=== PATIENT | female | born 1950 | race Caucasian/White ===

== ENCOUNTER 2016-08-27 19:10 | Emergency (ER) | payer MEDICARE, MEDICAID ==
[~2016-08-27] VITALS: Ht 157.5 cm; Wt 79.5 kg
--- NOTE | 2016-08-27 19:15 | ED.REPORT ---
HPI-Psychiatric Illness Date of Service Aug 27, 2016 ED Provider: Patel Panchal MD Pt is a 65 y/o female w/ a hx of unspecified psychiatric illnesses presenting to the ED via EMS from [facility] due to change in behavior. The patient reports chest pain and was apparently screaming out for help and "the temporary receptionist" called police to come check her. She relates that she does not need to be here. She denies stating any suicidal ideation to her caretakers and she is not suicidal now. Her chest pain has been occurring intermittently for 1 month and is described as a sharp pain which lasts minutes at a time. She does not know of anything that provokes her pain. She c/o associated ongoing neck pain. Pt denies SOB, diaphoresis, nausea. She has no history of cardiovascular disease. She states she has been at [facility] for 8 months due to a shoulder fracture. She was started on Seroquel a couple months ago. EMS reports the patient lives at [facility] and has been becoming more disruptive, manipulative, having outbursts, requiring frequent need changes, and agitated. The Crisis line was apparently called multiple times and this is not specified whether this was her or the staff. History difficult to obtain because she provides a contradictory history to the information given by staff. Nursing Notes Stated Complaint: MENTAL HEALTH EVAL Nursing Notes Reviewed: Yes ([employer] not reconciled) Allergies: Coded Allergies: amitriptyline (Verified Allergy, Mild, 08/27/16) aspirin (Verified Allergy, Mild, 08/27/16) bupropion (Verified Allergy, Mild, 08/27/16) ibuprofen (Verified Allergy, Mild, 08/27/16) paroxetine (Verified Allergy, Mild, 08/27/16) tetracycline (Verified Allergy, Mild, 08/27/16) Uncoded Allergies: ERYTHROMYCIN (Allergy, Mild, 08/27/16) PENICILLIN (Allergy, Mild, 08/27/16) General Time Seen by MD: 19:14 Chief Complaint Bizarre behavior Hx Obtained From: Patient, Cashier Host/Hostess, EMS Arrived By: Ambulance Onset Occurred: Onset unknown Symptom Duration: Since onset Progression Since Onset: Constant Location: : Chest Quality: Painful Radiation: Does not radiate Severity: Current: Moderate Severity: Maximum: Moderate Risk-Psychiatric Illness Suicide Risk Stratification RF Statements: Risk factors N/A Past Medical History Past Medical History Unspecified psychiatric illnesses "benign chest tumor" "Hand tumor" Past Surgical History x2 Arm Smoking History Never Smoker Social History Alcohol Use: Denies alcohol use Ambulatory Status Independent Review of Systems Respiratory: Denies: Shortness of breath Cardiovascular: Reports: Chest pain GI: Denies: Nausea Skin: Denies Diaphoresis Psychiatric: Reports: Change mental status, Unable to control self Complete sys rev & neg: except as marked. Physical Exam Initial Vital Signs Vital Signs (First) Date Time Temp Pulse Resp B/P Pulse Ox O2 Delivery O2 Flow Rate FiO2 08/27/16 19:16 97 15 128/89 97 Room Air Initial VS: Reviewed, Unavailable (none on chart, ordered) Head / Eyes: Atraumatic, Normocephalic, PERRL ENT: Mucous membranes moist, Conjunctiva normal, No scleral icterus Neck: Supple, Full range of motion Respiratory: Breath sounds normal, Clear to auscultation, No respiratory distress Cardiovascular: Regular rate & rhythm, Heart sounds normal, Intact distal pulses Abdomen / GI: Soft, Non-tender, No guarding, No rebound, No distention Extremities: Vascular intact, Neuro intact, No swelling, No tenderness Skin: Warm, Dry, No cyanosis General/Constitutional: Awake, Alert, No acute distress, Cooperative, Not toxic appearing Neurologic: Oriented X3, Speech NL, No motor deficits, No sensory deficits Psychiatric: Not suicidal, Not homicidal, No hallucinations Not agitated She provides a contradictory history to everything on the paper which indicates history from [facility] staff Difficult to determine insight and judgement due to conflicting stories She is calm and cooperative and disputes in a seemingly rational manner all apsects she was sent here for Interpretation & Diagnostics Lab Results Interpretation Result Diagram: 08/27/16194408/27/161944 Test 08/27/16 19:45 White Blood Count 12.4th/mm3 (3.8-10.1) Red Blood Count 3.85mil/mm3 (3.90-5.20) Hemoglobin 11.1g/dL (12.0-15.6) Hematocrit 34.9% (35.0-46.0) Mean Corpuscular Volume 90.6fL (81-100) Mean Corpuscular Hemoglobin 28.8pg (27.0-35.0) Mean Corpuscular Hemoglobin Concent 31.8% (32.0-37.0) Red Cell Distribution Width 13.5% (12.3-15.4) Platelet Count 312bil/L (150-400) Neutrophils (%) (Auto) 56.9% (40-74) Lymphocytes (%) (Auto) 28.3% (14-46) Monocytes (%) (Auto) 9.2% (4-12) Eosinophils (%) (Auto) 4.9% (0-5) Basophils (%) (Auto) 0.4% (0-3) Sodium Level 136mEq/L (134-144) Potassium Level 4.6mEq/L (3.5-5.2) Chloride Level 95mEq/L (97-108) Carbon Dioxide Level 28mmol/L (18-29) Blood Urea Nitrogen 12mg/dL (8-27) Creatinine 0.52mg/dL (0.57-1.00) Estimat Glomerular Filtration Rate 169mL/min (>59) Glucose Level 86mg/dL (60-99) Calcium Level 9.7mg/dL (8.5-10.1) Total Bilirubin 0.2mg/dL (0.0-1.2) Aspartate Amino Transf (AST/SGOT) 17U/L (0-50) Alanine Aminotransferase (ALT/SGPT) 13U/L (0-32) Alkaline Phosphatase 103U/L (25-165) Troponin T < 0.010ug/L (0.0-0.011) Total Protein 7.3g/dL (6.4-8.4) Albumin 3.7g/dL (3.4-5.0) Thyroid Stimulating Hormone (TSH) 5.800uIU/mL (0.450-4.500) Hold Lawson Top Tube Received (Received) Lab Results Interpretation: CBC nonspecific leukocytosis, patient has no clinical findings of infection CMP normal breathylizer negative U tox negative TSH marginally elevated, but not requiring therapeutic or medical intervention ECG Interpretation ECG Interpretation: Sinus rhythm rate 96 Inverted T waves lateral leads of uncertain significance Time: 19:35 Interpreted by: ED physician X-Ray Chest Interpretation Chest Xray Interpretation: IMPRESSION: Interval increased size of large retrocardiac hiatal hernia. No acute pulmonary disease. Dictated by: Chemo Gallagher M.D. on 08/27/2016 at 19:59 Approved by: Chemo Gallagher M.D. on 08/27/2016 at 20:00 View: Portable, 1 view Interpretation / Wet Read by: Interpret - Radiologist Re-Eval/Medical Decision Med Decision/Clinical Course This is a 65-year-old female sent in by [facility] for mental health evaluation. When I go to interview the patient she is cooperative, and indicates she does not think she needs to be here-she indicates that she was simply asking for help and assistance and was coming to help her so she yelled out, at which point she was told she is being sent for mental health evaluation. there is her version of the story, although it sounds that she has had a long history over the months she has been a mirror vista intermittently yelling and screaming, but that she has not mistreated danger to herself or others, she has limited insight. She has a reported history of mild dementia. There has been no acute mental status changes. She denies suicidal or homicidal ideation. She denies previous psychiatric hospitalization. She is on several different low-dose medications including Seroquel, risperidone, etc... She recently been added. There is no history of known substance abuse. The patient reports since she is here she did mention she has been having some intermittent chest pain over the past month. It is very atypical description, nonexertional, no shortness breath, nausea vomiting diaphoresis. She has no prior history of heart disease. On exam she is calm and cooperative. She did get up once when her blood pressure cuff went off, but calmed down a centimeters she was told what was going on and informed of age or the automatic cuff. This was over multiple hours. Her screening lab work was unremarkable except for marginal leukocytosis. Patient has no clinical features or findings on history or exam of infectious etiology necessitating additional testing. Her troponin is negative after a month of atypical symptoms are not finding indication for additional testing. An acute medical issue has not been identified. A mental health evaluation was then performed by [facility], please see their notes. The patient does not meet criteria for [facility] or additional mental health management, and while she does appear to have behavioral issues, it is not clear that she overtly benefit from additional psychiatric medications and/or management. She is therefore being discharged back to [facility]. Routine precautions reviewed. Patient indicates she is happy to return. Source of Hx: Old records Re-Evaluation/Progress : Time of Eval: 20:53 Re-Evaluation/Progress Note: Pt rechecked. Discussed imaging and lab findings. Informed pt of plan for treatment. Pt understands and agrees with plan for treatment. F/U instructions and RTER warnings given. All questions addressed. Differential Diagnosis: Negative: Alcohol abuse, Bipolar disorder, Depression, Homicidal, Mood disorder, Noncompliance-medications, Polysubstance abuse, Schizophrenia, Suicidal Counseled Regarding: Diagnosis, Lab results, Need for follow-up, When/why to return to ED Discharge & Departure Impression: Primary Impression: Behavioral disorder )( Condition at Discharge: No danger to self, No danger to others, No suicidal ideation, No homicidal ideation Disposition: Home ([place]) Discharge Condition All VS Reviewed: Yes Condition: Stable Additional Instructions: 1. She was seen by the mental health worker, but does not meet criteria for involuntary [facility] or admission. 2. She complained of having some chest pain over the past month so she underwent testing that was negative for a dangerous cause. 3. Continue to work with her provider on managing her medications, but it is not evident that she has a raza defined mental disorder that would benefit from a specific medication change. Referrals: Noemy Stone MD (PCP) Scribe Attestation Portions of this note were transcribed by Ronen Arredondo. I, Dr. Panchal personally performed the history, physical exam and medical decision-making; I reviewed and confirmed the accuracy of the information in the transcribed note. Signed by Robi Florian, 08/[id number] copies to: Noemy Stone MD, Matthew F MD Aug 27, 2016 19:15 RONEN ARREDONDO Aug 27, 2016 19:22
[2016-08-27 19:16] VITALS: BP 128/89; PULSE 97; RESP 15; O2SAT 97
[2016-08-27 19:54] LABS: BASOPHILS % (AUTO) 0.4 % (0-3); EOSINOPHILS % (AUTO) 4.9 % (0-5); MONOCYTES % (AUTO) 9.2 % (4-12); Mean Corpuscular Hemoglobin 28.8 pg (27.0-35.0); Mean Corpuscular Volume 90.6 fL (81-100); NEUTROPHILS % (AUTO) 56.9 % (40-74); Platelet Count 312 bil/L (150-400)
--- NOTE | 2016-08-27 20:01 | DRSVH ---
PROCEDURE: X-RAY CHEST ONE VIEW, PORTABLE ([id number]) INDICATIONS: 65 year-old female with chest pain. TECHNIQUE: One view of the chest was acquired. COMPARISON: [facility], CHEST 1 VIEW, 07/17/2011, 9:26. [facility], , CHEST 1 VIEW, 06/16/2011, 15:54. [facility], , CHEST 1 VIEW, 11/20/2010, 8:17. FINDINGS: Surgical changes and devices: None. Lungs and pleura: No pleural effusions or pneumothorax. Lungs are clear. Mediastinum: The large retrocardiac hiatal hernia has increased in size since 2011. Heart size is nor mal given AP technique. There is aortic atherosclerosis. Bones and chest wall: No suspicious bony lesions. Overlying soft tissues appear unremarkable. IMPRESSION: Interval increased size of large retrocardiac hiatal hernia. No acute pulmonary disease. Dictated by: Chemo Gallagher M.D. on 08/27/2016 at 19:59 Approved by: Chemo Gallagher M.D. on 08/27/2016 at 20:00
[2016-08-27 20:25] LABS: TROPONIN T < 0.010 ug/L (0.0-0.011)
[2016-08-27 21:42] VITALS: BP 126/87; PULSE 89; RESP 15; O2SAT 97
[2016-08-27 22:07] VITALS: BP 126/87; PULSE 89; RESP 15; O2SAT 97
== END 2016-08-27 22:08 ==
LOC: SED 19:10
DX: F91.9 Conduct disorder, unspecified (principal); R07.9 Chest pain, unspecified; M54.2 Cervicalgia; F03.90 Unspecified dementia, unspecified severity, without behavioral disturbance, psychotic disturbance, mood disturbance, and anxiety; Z88.6 Allergy status to analgesic agent; Z88.0 Allergy status to penicillin; Z88.1 Allergy status to other antibiotic agents; Z88.8 Allergy status to other drugs, medicaments and biological substances